=== PATIENT | female | born 1970 | race Caucasian/White ===

== ENCOUNTER 2021-09-14 22:03 | Emergency (ER) | payer MEDICAID, SELFPAY ==
--- NOTE | ~2021-09-14 | CT_ITS ---
EXAMINATION: CT HEAD WITHOUT CONTRAST CLINICAL INFORMATION: Left arm weakness and numbness COMPARISON: None TECHNIQUE: Contiguous axial imaging was performed from the skull base to vertex without intravenous administration of contrast. Coronal and sagittal reformatted images are performed at the CT scanner This CT examination was performed using dose optimization techniques as appropriate, variously including the following: *Automated exposure control *Adjustment of mA and/or kV according to patient size (this includes techniques or standardized protocols for targeted exams where dose is matched to indication/reason for exam; i.e. extremities or head) *Use of iterative reconstruction technique DLP: 606 mGy-cm FINDINGS: There is no evidence of acute intracranial hemorrhage or territorial infarction. No abnormal mass effect or midline shift is seen. Chávez to white matter differentiation is well preserved. No extra-axial fluid collections are identified. The ventricles are normal in size. There is no abnormal attenuation within the brain parenchyma. The osseous structures and soft tissues are normal. The mastoid air cells and visualized portions of the paranasal sinuses are well aerated. CT/CT head/brain wo con IMPRESSION: No acute intracranial pathology.
[2021-09-14 22:15] VITALS: BP 124/88; BP 148/82; PULSE 106; PULSE 88; RESP 12; TEMP 37.2; O2SAT 100; O2SAT 98; BMI 22.6
--- NOTE | 2021-09-14 22:59 | ED.GENADULT ---
HPI - General Adult General Chief complaint: Extremity Injury, Lower Stated complaint: L Arm Numbness/ETOH Time Seen by Provider: 09/14/21 22:49 Source: patient Limitations: no limitations History of Present Illness HPI narrative: This is a 51-year-old female who admits daily alcohol use, 6 beers a day, as well as smoking half pack cigarettes per day, who complains that her left hand and arm have had numbness and weakness starting about 3 weeks ago. The patient initially noted in her middle 2 fingers on her left hand. She notes that her left wrist feels weak and that she cannot raise it with much power. She has had some numbness extending up her arm more proximally to her elbow. She denies any leg numbness or weakness, denies any facial numbness or weakness. She denies any acute visual changes, trouble speaking, trouble swallowing. She denies any history of hypertension or diabetes. She denies any headache. The patient also complains of pain to her right big toe Related Data Allergies Allergy/AdvReac Type Severity Reaction Status Date / Time No Known Allergies Allergy Unverified 03/10/20 15:58 Review of Systems Review of Systems: Yes all other systems are reviewed and are negative Constitutional: Constitutional: Reports as per HPI and Denies fever(s) Eyes: Eyes: Reports as per HPI and Reports no additional eye complaints ENT: Reports system reviewed and no additional complaints, except as documented, Reports as per HPI, Denies nasal congestion, Denies nasal discharge and Denies sore throat Cardiovascular: Cardiovascular: Reports as per HPI, Denies chest pain and Denies dyspnea Respiratory: Respiratory: Reports as per HPI, Denies cough and Denies dyspnea Gastrointestinal: Gastrointestinal: Reports as per HPI, Denies abdominal pain, Denies diarrhea and Denies vomiting Genitourinary: Genitourinary: Reports as per HPI, Denies hematuria, Denies urinary frequency and Denies dysuria Musculoskeletal: Musculoskeletal: Reports no additional musculoskeletal complaints and Reports numbness Integumentary/Breasts: Skin/Breast: Reports as per HPI and Denies rash Neurologic: Reports as per HPI, Reports focal weakness and Reports numbness Psychiatric: Psychiatric: Reports no additional psychiatric complaints and Reports as per HPI Endocrine: Endocrine: Reports no additional endocrine complaints and Reports as per HPI Hematologic/Lymphatic: Hematologic/Lymphatic: Reports no additional hematologic/lymphatic complaints, Reports as per HPI and Reports other (No peripheral edema) [facility] Social History Social History Advance Directives: No Patient : No Physical Exam ED Vital Signs: Vital Signs - 24 hr 09/14/21 22:15 09/14/21 23:45 Temperature 98.9 F Pulse Rate 88 94 Respiratory Rate 12 17 Blood Pressure 124/88 117/86 Pulse Oximetry 100 BMI result Body Mass Index 22.6 Const Other: Patient appears mildly intoxicated. Diffuse psoriatic changes to the skin. General: no acute distress Orientation/consciousness: patient oriented x3 HENMT Head: Yes normal to inspection General nose exam: Normal external nose present Mouth: moist mucous membranes Throat: Yes posterior oropharynx normal, Yes tonsils normal and Yes uvula midline Eyes Eyelids: Yes eyelids normal Conjunctivae: conjunctivae normal Pupils: Equal, round and reactive pupils present Neck Neck: Yes supple Resp Effort & Inspection: normal respiratory effort Auscultation: clear to auscultation bilaterally Cardio Rate: regular rate Rhythm: regular rhythm Heart sounds: S1 normal heart sound present, S2 normal heart sound present, no gallops, no murmurs and no rubs GI Inspection: No distended Palpation (GI): Soft to palpation and nontender Auscultation: normal bowel sounds Skin General skin exam: other (Warm and dry) Neuro Other: Left arm with weak dorsiflexion of thumb and weak power of wrist dorsiflexion. No pronator drift. Decreased hand division roadmaster on the left. General: patient oriented x3 and CN's II-XI intact bilaterally Cranial nerves: Yes Equal, round and reactive pupils present, Yes Bilaterally intact EOM present and Yes Normal facial strength present Extrem Other: Right big toe with fungal infection to the nail, but no evidence of infection, no erythema or swelling, no erythema over any of the joints, no clinical evidence of gout. General: Yes no pedal edema Psych Affect: normal affect Attitude: cooperative Medical Decision Making [facility] [place] Narrative Medical decision making narrative: Patient with left arm weakness and a sense of numbness for 3 weeks. Patient did seem to have weakness of extension of the wrist in extension of thumb, consistent with radial nerve palsy. Patient did not seem to have any overall left arm weakness that is no proximal weakness. Patient states that she does in fact sleep with her left arm tucked up behind her head sometimes. Patient does drink daily. Overall history and exam is consistent with radial nerve palsy. CT of the brain was negative. Imaging Data CT scan - head: Radiologist's impression: IMPRESSION: No acute intracranial pathology. Discharge Plan Discharge Clinical Impression: Acute radial nerve palsy of left upper extremity Patient Disposition: Home, Self-Care Instructions: Radial Nerve Palsy (ED) Additional Instructions: You appear to have a radial nerve palsy, which well get better gradually over time. Try to do physical therapy exercises by repeatedly trying to extend her thumb and her wrist several times a day. Follow-up with your primary care physician or with a neurologist if it is not improving in a few weeks. Discharge Date/Time: 09/14/21 23:45
[2021-09-14 23:45] VITALS: BP 117/86; PULSE 94; RESP 17
== END 2021-09-14 23:45 | disposition home or self-care (01) ==
PROVIDERS: Emergency Provider Emergency Medicine
DX: G56.32 Lesion of radial nerve, left upper limb (principal); R20.0 Anesthesia of skin; M79.674 Pain in right toe(s); F17.200 Nicotine dependence, unspecified, uncomplicated
CPT/HCPCS: 70450; 99283; 99284

== ENCOUNTER 2025-02-24 17:22 | Emergency (ER) | payer MEDICAID, SELFPAY ==
--- NOTE | ~2025-02-24 | XR_ITS ---
CLINICAL HISTORY: atraumatic R shoulder pain 4 view right shoulder Comparison: None provided Findings: Bones intact. No dislocations. No significant arthritic change. No erosions. No radiopaque foreign body. IMPRESSION: 1. No acute findings This document has been electronically signed by: Joe Barraza MD on 02/24/2025 18:27:56
--- NOTE | 2025-02-24 17:39 | ED_ITS ---
HPI - General Adult General Chief complaint: Extremity Problem Stated complaint: ? dislocation of rt shoulder Related Data Previous Rx's ?Medication ?Instructions ?Recorded lidocaine 5 % topical patch 1 patch topical DAILY #15 ea 02/25/25 Allergies Allergy/AdvReac Type Severity Reaction Status Date / Time No Known Allergies Allergy Unverified 02/25/25 09:53 [facility] Social History Social History Advance Directives: No Advance Directives Information Provided: Yes Physical Exam ED Vital Signs: Vital Signs - 24 hr 02/24/25 17:40 Temperature 97.7 F Pulse Rate 90 Respiratory Rate 18 Blood Pressure 132/87 Pulse Oximetry 97 Oxygen Delivery Method Room Air BMI result Body Mass Index 18.1 Course Course Course Narrative: This is a Rapid Medical Examination (RME) performed by Tae Hawkins PA-C in triage. Full HPI, ROS, assessment and treatment plan per primary provider in the Main ED. Hx: 54 yo F here for eval of atraumatic R shoulder pain x2-3 hours. took shoulder feels stiff. 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 reports hx of dislocation in this shoulder. no injury/trauma/falls. Plan: xrs Reevaluation(s) Reevaluation #1: Patient left the emergency department before myself or any of the other clinicians could review or explain physical exam findings, test results, need or lack there of for additional testing, treatment options, or a treatment plan. Discharge Plan Discharge Clinical Impression: Pain in right shoulder Patient Disposition: Left W/O Completing Treatment Prescriptions: No Action lidocaine 5 % adhesive patch,medicated 1 patch topical DAILY Qty: 15 0RF Rx Instructions: leave on most painful area for up to 12 hrs Discharge Date/Time: 02/24/25 19:16
[2025-02-24 17:40] VITALS: BP 132/87; PULSE 90; RESP 18; TEMP 36.5; O2SAT 97; BMI 18.1
== END 2025-02-24 19:16 | disposition left against medical advice (07) ==
LOC: HO.ED 18:52
PROVIDERS: Emergency Provider Emergency Medicine
DX: M25.511 Pain in right shoulder (principal)
CPT/HCPCS: 73030; 99281; 99283

== ENCOUNTER → 2025-02-24 17:41 | Outpatient (BNV) | payer MEDICAID, SELFPAY | PROVIDERS: Emergency Provider Emergency Medicine; Visit Provider Radiology Diagnostic Radiology | DX: M25.511 Pain in right shoulder (principal) | CPT/HCPCS: 73030 ==

== ENCOUNTER 2025-02-25 09:39 | Emergency (ER) | payer MEDICAID, SELFPAY ==
[2025-02-25 09:52] VITALS: BP 160/79; PULSE 85; RESP 20; TEMP 37; O2SAT 100; BMI 18.4
--- NOTE | 2025-02-25 10:03 | ED.EXTPRO ---
HPI - Extremity Problem General Chief complaint: Extremity Injury, Upper Stated complaint: r shoulder pain Time Seen by Provider: 02/25/25 10:02 Source: patient, RN notes reviewed and old records reviewed Mode of arrival: ambulatory Limitations: no limitations History of Present Illness ED Provider: Yossi [facility] Narrative: Patient is a 54-year-old female presenting to the emergency department with complaint of atraumatic right posterior shoulder pain since yesterday. States pain began around 2 hours prior to her presenting to the emergency department yesterday. She had x-ray done while in the waiting room but left without completing treatment. Denies fall or other trauma. Worse with movement. Denies any chest or abdominal pain, dyspnea or palpitations. States pain significantly improved with ibuprofen. Related Data Previous Rx's ?Medication ?Instructions ?Recorded lidocaine 5 % topical patch 1 patch topical DAILY #15 ea 02/25/25 Allergies Allergy/AdvReac Type Severity Reaction Status Date / Time No Known Allergies Allergy Unverified 02/25/25 09:53 Review of Systems Review of Systems: As per HPI Yes all other systems are reviewed and are negative Constitutional: Constitutional: Reports as per HPI [facility] Social History Social History Advance Directives: No Advance Directives Information Provided: Yes Physical Exam Vital Signs: Vital Signs: Last Vital Signs Temp 98.6 F 02/25/25 10:13 Pulse 85 02/25/25 10:13 Resp 20 02/25/25 10:13 BP 160/79 H 02/25/25 10:13 Pulse Ox 100 02/25/25 10:13 O2 Del Method Room Air 02/25/25 10:13 BMI result Body Mass Index 18.4 Vital signs have been reviewed and appear to be correct. Blood pressure normal. Heart rate normal. Respiratory rate normal. Temperature normal. Oxygen saturation normal. Const: General: cooperative, healthy appearing and no acute distress Orientation/consciousness: oriented to person, oriented to place, oriented to time and patient oriented x3 Limitations: no limitations HEENT: Head: Yes normocephalic and Yes atraumatic Ears: external ears normal General nose exam: Normal external nose present Face and sinus: Yes face symmetric Mouth: oropharynx normal and moist mucous membranes Throat: Yes uvula midline Eyes: Pupils: Equal, round and reactive pupils present Neck: Neck: Yes normal visual inspection and Yes supple Resp: Effort & Inspection: normal respiratory effort and able to speak in complete sentences Auscultation: clear to auscultation bilaterally Cardio: Rate: regular rate Rhythm: regular rhythm Heart sounds: S1 normal heart sound present and S2 normal heart sound present GI: Palpation (GI): Soft to palpation and nontender Auscultation: normoactive bowel sounds : General: Yes no CVA tenderness Back/Spine/Pelvis: Back: no CVA tenderness Skin: General skin exam: elasticity normal and turgor normal Neuro: General: oriented to person, oriented to place, oriented to time, patient oriented x3, moves all extremities, no focal motor deficits and CN's II-XI intact bilaterally Cranial nerves: Yes Equal, round and reactive pupils present Cognition (Neuro): normal cognition Extrem: General: Yes full ROM, Yes no pedal edema and Yes no calf tenderness Right upper extremity: shoulder/upper arm Details: normal to inspection, tenderness Location: of the scapula and normal ROM (pain with abduction) and Extremity exam: right hand Details: vascular exam Details: radial pulse present and normal capillary refill and normal ROM of fingers Psych: Mental Status: mental status grossly normal Affect: normal affect Thought process: Normal thought process present Medical Decision Making Medical Decision Making [facility] Narrative: Patient is a 54-year-old female presenting to the emergency department with complaint of atraumatic right posterior shoulder pain since yesterday. On exam patient is awake, A+Ox3, VS WNL, afebrile, normal neurological exam without focal deficits, physical exam findings as above. Given reported symptoms and physical exam findings, initial differential includes but is not limited to strain, sprain, osteoarthritis. Unlikely fracture. X-ray notable for no evidence of fracture or arthritis. My interpretation is in agreement with the radiologist's interpretation. Physical exam findings consistent with rotator cuff strain. Advised to continue using ibuprofen, can add Tylenol as well, will send prescription for topical lidocaine patches. Will refer to orthopedics for follow-up. Return precautions discussed. Patient verbalized understanding of and agreement with plan. Differential Diagnosis Differential Diagnoses: The differential diagnosis associated with the presentation includes As per MDM Admission/Observation Consideration of admission/observation: Escalation of care including admission/observation considered Patient would have been admitted to the hospital had their clinical presentation warranted hospital admission. Independent Interpretation I performed an independent interpretation of an: Plain X-Ray Interpretation: X-ray of right shoulder obtained yesterday, 02/24/2025, without evidence of acute fracture or osteoarthritis Radiology Impression Discussion of test interpretation with radiology: I have reviewed the radiologist's reading. Radiologist Impression: 4 view right shoulder Comparison: None provided Findings: Bones intact. No dislocations. No significant arthritic change. No erosions. No radiopaque foreign body. IMPRESSION: 1. No acute findings External Record Review External record reviewed: Inpatient record, Office record and Outpatient record Prescription Management I considered prescription management with: Pain Medication Discharge Plan Discharge Clinical Impression: Right shoulder strain Qualifiers: Encounter type: initial encounter Qualified Code(s): S46.911A - Strain of unspecified muscle, fascia and tendon at shoulder and upper arm level, right arm, initial encounter Patient Disposition: Home, Self-Care Instructions: Muscle Strain (DC), Rotator Cuff Injury (ED) Additional Instructions: You were evaluated in the emergency department today for shoulder pain. Your x-ray was normal and did not show evidence of any fracture or arthritis. We recommend that you continue to use ibuprofen every 6 hours as needed for pain. You can also add 650 mg of Tylenol every 6 hours for pain. You are being prescribed topical lidocaine patches which you can wear for up to 12 hours in a 24 hour period. Do not apply heat directly over the patches. If your symptoms do not slowly improve over the next 1-2 weeks, we recommend you follow up with Orthopedics. Return to the emergency department with new weakness, numbness or tingling to her arm, or any other new or concerning symptoms. Prescriptions: New lidocaine 5 % adhesive patch,medicated 1 patch topical DAILY Qty: 15 0RF Rx Instructions: leave on most painful area for up to 12 hrs Referrals: [facility] [Provider Group] - 2 weeks Clinical Impression: Right shoulder strain Interventions: ED Discharge Assessment Last Done: 02/25/25 10:13 Discharge Date/Time: 02/25/25 10:14 Print Language: Romanian
[2025-02-25 10:13] VITALS: BP 160/79; PULSE 85; RESP 20; TEMP 37; O2SAT 100
== END 2025-02-25 10:14 | disposition home or self-care (01) ==
PROVIDERS: Emergency Provider Emergency Medicine
DX: S46.911A Strain of unspecified muscle, fascia and tendon at shoulder and upper arm level, right arm, initial encounter (principal); S46.011A Strain of muscle(s) and tendon(s) of the rotator cuff of right shoulder, initial encounter; X58.XXXA Exposure to other specified factors, initial encounter; Y93.9 Activity, unspecified; Y92.9 Unspecified place or not applicable; Y99.8 Other external cause status
CPT/HCPCS: 99282; 99283